=== PATIENT | male | born 1945 | race Caucasian/White ===

== ENCOUNTER 2023-08-18 10:12 | Outpatient (REF) | payer MEDICARE, SELFPAY ==
--- NOTE | ~2023-08-18 | XR_ITS ---
EXAMINATION: XR LUMBOSACRAL SPINE WITH OBLIQUES CLINICAL INFORMATION: Secondary scoliosis. Status post L2-L3, L3-L4, L4-L5 right hemilaminectomies as noted on prior MRI. COMPARISON: None. TECHNIQUE: 4 views of the lumbar spine inclusive of lateral flexion and extension views. FINDINGS: Levoscoliosis of the lumbar spine. Degenerative changes in the imaged lower thoracic spine. Degenerative changes in the bilateral sacroiliac joints. Possible transitional anatomy. Extensive facet arthritis in the axs-je-yicog lumbar spine. Atherosclerotic aortic calcifications. Moderate anterior wedge compression deformity of T12 vertebral body of indeterminate age and etiology. XR/XR lumbar spine 4V min IMPRESSION: 1. Moderate anterior wedge compression deformity of T12 vertebral body of indeterminate age and etiology. 2. Extensive facet arthritis in the mid to lower lumbar spine. 3. Levoscoliosis of the lumbar spine.
== END 2023-08-18 10:13 | disposition home or self-care (01) ==
LOC: HO.HOSX 10:12
PROVIDERS: PCP Internal Medicine; Visit Provider Neurological Surgery
DX: M51.36 Other intervertebral disc degeneration, lumbar region (principal); M41.56 Other secondary scoliosis, lumbar region
CPT/HCPCS: 72110; 99202

== ENCOUNTER 2023-08-18 10:12 | Outpatient (AMB) | payer MEDICARE, SELFPAY ==
--- NOTE | 2023-08-18 10:27 | HO.SPINEOV ---
Intake Intake Visit Reasons: low back pain Intake Note: Mr. Bonilla is here today c/o Low back pain that runs down legs. Model [employer]' Required: No Assessment & Plan Assessment & Plan (1) Scoliosis of lumbar region due to degenerative disease of spine in adult: Code(s): M41.56 - Other secondary scoliosis, lumbar region Plan: Dear colleague Thank you for referring Mike Bonilla to the office today with a chief complaint of progressive right-sided back pain. HPI: This 78-year-old active male has a history of multiple spinal surgeries including a right L2-3 microdiskectomy 2019 and a right SI joint fusion. He comes to my office complaining of progressive back pain that is mostly located along the right paralumbar spine and can radiate to the right leg and groin. Standing is the worst. He starts lean over towards the left side and developed severe pain. Walking is also limited due to pain. Sitting down improves the symptoms. He denies weakness or numbness. The following conservative treatment options were tried without success antiinflammatories, tylenol, physician guided home exercise plan, and cortisone shots PMH: Diabetes type 2, hypertension. Medications: Metformin, lisinopril Allergies: NKDA Social history: Physical Exam: Pleasant male. On inspection there is a lumbar degenerative scoliosis. No neurological deficits for motor sensation or reflexes. Radiological Studies: MRI done at [facility] on 07/14/2023 was compared to an MRI of the lumbar spine of 2019 and shows severe progressive lumbar degenerative disc disease L2-3, L3-4 and L4-5 with the development of a lumbar degenerative scoliosis due to asymmetrical collapse of the disc spaces . In addition there is moderate L2-3 spinal stenosis and multilevel moderate to severe foraminal stenosis. Impression/Plan: This 78-year-old male is suffering from progressive back pain with unilateral claudication into his right leg due to progressive lumbar degenerative scoliosis. A standing x-ray with flexion-extension confirms the lumbar degenerative scoliosis. I offered him a minimally invasive correction of the deformity through an L2-3 transKambin fusion and L3-L5 oblique lumbar interbody fusion. I described the procedure and expected postoperative course. He is scheduled for 10/19/2023. Thank you for allowing me to participate in your patients care. 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
== END 2023-08-18 11:41 | disposition home or self-care (01) ==
PROVIDERS: PCP Internal Medicine; Visit Provider Neurological Surgery
DX: M41.56 Other secondary scoliosis, lumbar region (principal)
CPT/HCPCS: 99205; 99215

== ENCOUNTER 2024-02-29 06:06 | Inpatient (IN) | payer MEDICARE, SELFPAY ==
--- NOTE | 2024-02-24 | ECG_ITS ---
Test Reason : PREOP Blood Pressure : / mmHG Vent. Rate : 061 BPM Atrial Rate : 061 BPM P-R Int : 192 ms QRS Dur : 094 ms QT Int : 404 ms P-R-T Axes : 090 -23 071 degrees QTc Int : 406 ms Sinus rhythm with marked sinus arrhythmia Nonspecific T wave abnormality Abnormal ECG No previous ECGs available Referred By: Carmella Flores Electronically Signed By:ACACIA CARDENAS
[2024-02-24 12:28] VITALS: BP 122/76; PULSE 68; RESP 20; O2SAT 97; BMI 34.7
--- NOTE | 2024-02-24 12:43 | P.CONAN_ITS ---
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 (Acute) Past Medical History Medical History Arthritis GERD (gastroesophageal reflux disease) Fall Diverticulosis DDD (degenerative disc disease), lumbar DDD (degenerative disc disease), cervical Back pain Diabetes HTN (hypertension) Family History Family history of problems with anesthesia: No Surgical History Surgical History History of esophagogastroduodenoscopy (EGD) H/O colonoscopy Hx of surgical fusion joint Hx of cataract surgery Hx of arthroscopy of shoulder Hx of decompressive lumbar laminectomy Hx of inguinal hernia repair Hx of total knee replacement Hx of arthroscopy of knee Hx of appendectomy History of Problems with Anesthesia: No Social History Social History Are you a primary day care center director to a significant other at home: No Do you presently have visiting nurse or other home services: No Patient Tobacco Use Status: Former Tobacco user Tobacco use type: Cigarette and Cigar Cigarette Packs Per Day: 1 Cigarettes Per Day: 20.0 Use of substances other than those prescribed or required for medical reasons: No Have you been hit, kicked, punched, or otherwise hurt by someone within the past year? If so, by whom?: No Spiritual Healthcare Practices: none Yarsanism Healthcare Practices: Religious Cultural Healthcare Practices: none Advance Directives Information Provided: Yes (as above noted) Advance Directives on File: No Recently lost weight without trying: No Eating poorly because of decreased appetite: No Nutrition Risks: Surgical patient >75years Poor oral hygiene: No (broken tooth bottom right/has dental crowns) Meds Allergies Allergy/AdvReac Type Severity Reaction Status Date / Time latex Allergy Intermediate Itching-certain Verified 02/29/24 06:20 tapes athletic therapy tape Allergy Severe Itching Uncoded 02/29/24 06:20 Home Medications ?Medication ?Instructions ?Recorded ?Confirmed ?Last Taken ?Type fluticasone propionate 50 1 spray intranasal BID PRN Nasal 10/04/23 02/24/24 Unknown History mcg/actuation nasal Congestion spray,suspension metformin 1,000 mg tablet 1,000 mg PO BEDTIME 10/04/23 02/24/24 Unknown History Exam Height,Weight and Vital Signs: Height 6 ft 4 in Weight 129.274 kg Last Vital Signs Pulse 68 02/24/24 12:28 Resp 20 02/24/24 12:28 BP 122/76 02/24/24 12:28 Pulse Ox 97 02/24/24 12:28 O2 Del Method Room Air 02/24/24 12:28 Pertinent Lab Results Pertinent Lab Results: Lab Results 02/24/24 02/24/24 Range/Units 13:17 13:25 WBC 7.4 (4.8-10.8) X10*3/uL RBC 5.38 (4.60-5.80) X10*6/uL Hgb 16.0 (14.0-18.0) g/dl Hct 47.8 (42.0-52.0) % MCV 88.8 (80.0-98.0) fL MCH 29.7 (27.0-33.0) pg MCHC 33.5 (31.0-36.0) g/dl RDW 13.7 (11.0-16.0) % Plt Count 239 (160-400) X10*3/uL MPV 10.0 (9.4-12.4) fL Absolute Nucleated RBC 0.000 (0.0-0.012) X10*3/uL Nucleated RBC % (auto) 0.0 (0.0-0.2) /100WBC Sodium 140 (135-145) mmol/L Potassium 4.3 (3.3-5.1) mmol/L Chloride 106 (96-108) mmol/L Carbon Dioxide 28 (22-29) mmol/L Anion Gap 10 L (12-20) BUN 19 H (9-16) mg/dL Creatinine 1.18 (0.5-1.4) mg/dL Estim Creat Clear Calc 76.9 Estimated GFR 60 Random Glucose 92 (60-115) mg/dL Calcium 10.3 H (8.4-10.2) mg/dL Blood Type O Positive Antibody Screen NEGATIVE Narrative Narrative: EKG 01/2024 Vent. Rate : 061 BPM Atrial Rate : 061 BPM P-R Int : 192 ms QRS Dur : 094 ms QT Int : 404 ms P-R-T Axes : 090 -23 071 degrees QTc Int : 406 ms Sinus rhythm with marked sinus arrhythmia Nonspecific T wave abnormality Abnormal ECG No previous ECGs available Airway Mallampati Class: II TM Dist: >3cm Neck ROM: Full Loose/Missing/Broken Teeth: Yes (broken filling left lower molar, crowns throughout) Heart: RRR Lungs: CTAB Assessment and Plan Assessment Anesthesia Assessment: Anesthesia Plan Discussed and PAT Visit Final Anesthetic Review Family History of Problems with Anesthesia: No History of Problems with Anesthesia: No Documented by User: Devorah Narayan MD 02/29/24 08:02 [facility] Past Medical History Medical History Arthritis GERD (gastroesophageal reflux disease) Fall Diverticulosis DDD (degenerative disc disease), lumbar DDD (degenerative disc disease), cervical Back pain Diabetes HTN (hypertension) Surgical History Surgical History History of esophagogastroduodenoscopy (EGD) H/O colonoscopy Hx of surgical fusion joint Hx of cataract surgery Hx of arthroscopy of shoulder Hx of decompressive lumbar laminectomy Hx of inguinal hernia repair Hx of total knee replacement Hx of arthroscopy of knee Hx of appendectomy Social History Social History Are you a primary day care center director to a significant other at home: No Do you presently have visiting nurse or other home services: No Patient Tobacco Use Status: Former Tobacco user Tobacco use type: Cigarette and Cigar Cigarette Packs Per Day: 1 Cigarettes Per Day: 20.0 Use of substances other than those prescribed or required for medical reasons: No Have you been hit, kicked, punched, or otherwise hurt by someone within the past year? If so, by whom?: No Spiritual Healthcare Practices: none Yarsanism Healthcare Practices: Religious Cultural Healthcare Practices: none Advance Directives Information Provided: Yes (as above noted) Advance Directives on File: No Recently lost weight without trying: No Eating poorly because of decreased appetite: No Nutrition Risks: Surgical patient >75years Poor oral hygiene: No (broken tooth bottom right/has dental crowns) Meds Allergies Allergy/AdvReac Type Severity Reaction Status Date / Time latex Allergy Intermediate Itching-certain Verified 02/29/24 06:20 tapes athletic therapy tape Allergy Severe Itching Uncoded 02/29/24 06:20 Home Medications ?Medication ?Instructions ?Recorded ?Confirmed ?Last Taken ?Type fluticasone propionate 50 1 spray intranasal BID PRN Nasal 10/04/23 02/24/24 Unknown History mcg/actuation nasal Congestion spray,suspension metformin 1,000 mg tablet 1,000 mg PO BEDTIME 10/04/23 02/24/24 Unknown History Assessment and Plan Assessment Anesthesia Assessment: Chart Reviewed Final Anesthetic Review NPO: Yes ASA Class: II Final Preanesthetic Review: Meds/Allgs Chart Reviewed, Consent Obtained/Reviewed and Anes Risks/Benef Reviewed Patient Risk: Low Procedure Risk: Intermediate Anesthetic Plan Anesthetic Plan: GA Disposition: Standard PACU
[2024-02-24 14:01] LABS: Hematocrit 47.8 % (42.0-52.0); Mean Corpuscular HGB Conc 33.5 g/dl (31.0-36.0); Mean Corpuscular Hemoglobin 29.7 pg (27.0-33.0); Mean Corpuscular Volume 88.8 fL (80.0-98.0); Platelet Count 239 X10*3/uL (160-400); Red Blood Count 5.38 X10*6/uL (4.60-5.80); Red Cell Distribution Width 13.7 % (11.0-16.0); White Blood Count 7.4 X10*3/uL (4.8-10.8)
[2024-02-24 14:49] LABS: Anion Gap 10 (12-20); Blood Urea Nitrogen 19 mg/dL (9-16); Calcium 10.3 mg/dL (8.4-10.2); Carbon Dioxide 28 mmol/L (22-29); Chloride 106 mmol/L (96-108); Creatinine Clr Calc Pharmacy 76.9; Estimated Glomerular Filt Rate 60; Glucose Random 92 mg/dL (60-115); Potassium 4.3 mmol/L (3.3-5.1); Sodium 140 mmol/L (135-145)
[2024-02-29] VITALS (15 sets, daily range): BP systolic 127–163; BP diastolic 75–89; PULSE 57–76; RESP 16–19; TEMP 36.1–36.7; O2SAT 93–98; BMI 35.2
[2024-02-29 06:58] LABS: Glucose, Whole Blood 130 mg/dL (60-115)
[2024-02-29] MEDS: Gabapentin 300 MG CAPSULE PO ×3 (06:59→20:32)
[2024-02-29] MEDS: Lactated Ringers 1,000 ML 100 ML IVCONT (06:59)
[2024-02-29] MEDS: methocarbamoL 750 MG TABLET PO (06:59)
--- NOTE | 2024-02-29 07:02 | P.HPSUR_ITS ---
Pre-Procedural Eval Section A - 24 Hr Update-Section A only Date of Service: 02/29/24 The patient is an INPATIENT: No Changes since office visit: No Cold of Flu in the past 2 weeks, No New Medical Problems, No Changes in Medication and No Patient answered all questions The patient has been examined within 24 hours of the surgical procedure. The History & Physical has been completed within 30 days and I have reviewed it.: No Section B - Complete if H&P > 30 days Chief Complaint: s/p L2-5 Lumbar fusion Allergies: Allergies Allergy/AdvReac Type Severity Reaction Status Date / Time latex Allergy Intermediate Itching-certain Verified 02/29/24 06:20 tapes athletic therapy tape Allergy Severe Itching Uncoded 02/29/24 06:20 Review of Systems Sugical H&P ROS: Negative: Constitution, Cardiovascular, Respiratory, Neurological, Psychiatric, Hem-Onc, Allergic/Immunologic, Gastrointestinal, Genitourinary, Musculoskeletal, Integumentary, Endocrine and Eyes/Ears/Nose/Throat Exam Surgical H&P Exam: Normal: HEENT, Normal: Heart, Normal: Lungs, Normal: Ex tremities, Normal: Abdomen, Normal: Skin and Normal: Neurological (awake, alert,oriented x 3 ) Plan Diagnosis/Plan: Unchanged L2-3 Transkambin interbody fusion, L3-4, L4-5 Oblique lumbar interbody fusion Time Spent With Patient Time: Total time managing care of this patient today __5__ minutes.
--- NOTE | 2024-02-29 07:13 | PHA.MEDREC ---
Pharmacy Consult ? Medication Reconciliation Pharmacy has completed the medication reconciliation. Reviewed med rec done by nursing
--- NOTE | 2024-02-29 12:20 | W.PM.OPN ---
Operative Note Operative Note Date of Service: 02/29/24 Narrative: Preoperative diagnosis: 1) lumbar degenerative disc disease L2-3, L3-4 and L4-5 With a degenerative scoliosis 2) back pain and lumbar radiculopathy Postprocedure diagnosis: 1) same as above Procedure: 1) L2-3, L3-4 and L4-5 oblique lateral lumbar interbody fusion with discectomy, preparation of the endplates and placement of a titanium bullet cage packed with allograft, anterior to the transverse process in modified prone position, with intraoperative biplanar fluoroscopy imaging and electrophysiological monitoring 2) L2 the [id number] minimally invasive pedicle screw placement and posterior lateral instrumentation and fusion with intraoperative biplanar fluoroscopic imaging and electrophysiological monitoring 3 njection of 10 cc of Exparel at the L3 transverse process for a muscular erector spinae block and additional Exparel in paravertebral tissue for postop management Consent Informed Consent was obtained for this operation. I have explained the nature, purpose and benefits of the operation. I have discussed the risks and benefit of the operation including possible complications or adverse events with patient/family. Alternative(s) were discussed with the patient with their relative benefits and risks as well as the consequences of not accepting the operation were included in obtaining consent. Surgeon: NIK TAYLOR MD, PHD Procedure Assisted By: viet Chappell Description of Procedure: This is a complex surgery on the lumbar spine and an tmd teacher assistant as needed for safety of the surgery for setup of instrumentation, retraction and closing. History: this 78-year-old male suffering from back pain, lumbar radiculopathy due to lumbar degenerative disc disease L2-L5 causing a degenerative scoliosis. T the original plan was to do an oblique lumbar interbody fusion L3-4 and L4-5 followed by a trans Kambin L2-L3 fusion followed by a posterior lateral instrumented fusion L2-L5. The procedure and complications were explained and the patient was consented. Procedure: The patient was brought to the operating room and endotracheally intubated. the patient was initially put in the lateral position with the left side up. Prep and drape was done followed by time-out. A 1 in incision was made in the left lower abdominal quadrant under fluoroscopic guidance. The L4-5 disc space was reached. Sequential dilators were placed followed by retractor. When I tried to do an annulotomy venous bleeding started. Initially small but then advancing to larger amounts. I performed hemostasis with the retractor and Surgiflo and Surgicel. I also called , vascular surgeon for standby. I think a small injury to a branch of the iliac vein occurred. Fortunately, hemostasis occurred and the retractor could be removed without any difficulties. However, it also man that I could not do the oblique lumbar interbody fusion through this approach. Therefore we decided to convert the procedure to a trans Kambin fusion L2-3, L3-4 and L4-5. The patient was positioned on the Danny spine table in a modified prone position for ease of access from the left side for the L2-3 and L3-4 levels and from the right side for the L4-5 level.. 2C arms were installed for fluoroscopy. Prepping and draping was done followed by timeout. The landmarks, including spinal processes, transverse processes, disc space, endplates and pedicles are identified and marked. The following steps are taken for each specified level: L2-3level: Cage size 11 mm high and 33 mm long titanium; L3-4 level: Cage size 10 mm high and 33 mm long titanium; L4-5 level: Cage size 10 mm high and 33 mm long titanium The patient was turned using the rotation of the surgical table so a near direct anterior lateral approach to the lumbar spine could be achieved. A small incision was then made superior to the mid iliac crest and then using biplanar fluoroscopy visualization, under electrophysiological monitoring and stimulation, we introduced an electrophysiological probe through the retroperitoneal space into the desired disc anterior to the transverse process and then passed it into the disc space after finding a silent window. The sleeve was retained and the probe was removed, then the K wire was passed sequentially into the disc space. A dilating tube was then passed along the same route. Following this, a working channel, a working channel was then passed sequentially into the disc space. The working channel was manually held in position while a series of disc cleaning tools were passed through the channel to remove the affected disc under clear and direct biplanar fluoroscopic visualization, decompress the nerve roots and equal corticated vertebral endplates at this segment. Arthrodesis of the intervertebral space via an anterior retroperitoneal exposure was achieved through Kambin's Vanderwagen and lateral extraforaminal space. Allograft was added into the anterior disc space. The working channel was then removed. A titanium interbody cage tightly packed with allograft was then inserted into the midportion of the intervertebral disc space over a K-wire under biplanar fluoroscopic visualization and intraoperative neuro monitoring. The inter pedicular and intradiscal space was significantly enlarged and disc height was restored to worked normal anatomy there for releasing pressure on the nerve roots visual largely the spinal canal and lateral recess as well as foramen were bilateral decompressed and all bones were confined to the borders of the disc space . the L2-3 and L3-4 levels were done from the left side. I was unable to obtain a silent window at the L4-5 level and therefore to come from the right side which was successful. In other words no abnormalities with neuro monitoring were seen. The following steps are then taken for each specified level: L3 levell: right L2 screw with a diameter of 6.5 x 50mm. the left L2 with a diameter of 7.5 x 50 mm. L3 level: Bilateral L3 screws with a diameter of 6.5 x 50 mm. L4 level: Bilateral L4 screws with a diameter of 6.5 x 50 mm. L5 level: Bilateral L5 screws with a diameter of 6.5 x 50 mm. a total of 8 pedicle screws were placed The posterolateral fusion is initiated after the patient is rotated to a true prone position. The entry point to the pedicle is identified in the AP and lateral views and then the skin incision is injected with local anesthetic. We entered the pedicle with the pediguard tap after which a K-wire was introduced into the vertebral body. Additionally, I used a small periosteal decorticator along the screws to refresh the surface of the bone and facet and I put some amount of allograft for additional stability for the posterolateral fusion. Over the K-wire we insert pedicle screws bilaterally. After the screws were placed, we put the adan in place and under fluoroscopic imaging, we locked the adan in place and removed the screw tops and then each incision has been closed with 0 Vicryl for the fascia and a 3-0 Vicryl for the subdermal layer. Steri-Strips were used to approximate the incisions. An OpSite with Tegaderm was used to cover the incision. Final x-rays and AP and lateral projection showed good position of the interbody device and instrumentation. All sponge and needle counts were correct. The patient was extubated and transported in a stable condition to the recovery room. 2-0 Vicryl This procedure was done with the aid of a physician tmd teacher assistant as a qualified resident was not available. Anesthesia: General Estimated Blood Loss (ml): 100 mL Specimen: None Duration of Surgery: 4 hours Postoperative Plan: Admit to inpatient
[2024-02-29] MEDS: HYDROmorphone HCl 0.5 MG/0.5 ML SYRINGE 0.25 MG IVPUSH ×2 (13:00→13:05)
[2024-02-29 13:45] LABS: Glucose, Whole Blood 168 mg/dL (60-115)
[2024-02-29] MEDS: Acetaminophen 1,000 MG/100 ML PIGGYBACK 400 MG IV ×2 (13:53→20:31)
[2024-02-29] MEDS: oxyCODONE HCl Immed Release 5 MG TABLET 10 MG PO (13:53)
[2024-02-29] MEDS: 0.9 % Sodium Chloride 1,000 ML 75 ML IVCONT (13:56)
[2024-02-29] MEDS: hydrOXYzine HCL 25 MG TABLET PO ×2 (14:28→20:32)
[2024-02-29] MEDS: ceFAZolin Sodium 3 GM in 0.9 % Sodium Chloride 100 ML IV ×2 (15:23→20:40)
--- NOTE | 2024-02-29 16:00 | PC.NURSE ---
Pt unable to void at 1600, bladder scanned for 359ml, cathed for 400ML, pt tolerated well.
[2024-02-29 16:05] LABS: Glucose, Whole Blood 177 mg/dL (60-115)
[2024-02-29] MEDS: Insulin Lispro 100 UNIT/ML 3 ML VIAL SUBCUT ×2 (16:52→20:30)
[2024-02-29] MEDS: Ketorolac Tromethamine 15 MG/ML VIAL IVPUSH (18:08)
[2024-02-29 20:02] LABS: Glucose, Whole Blood 164 mg/dL (60-115)
[2024-02-29] MEDS: metFORMIN HCl 1,000 MG TABLET 1000 MG PO (20:32)
[2024-02-29] MEDS: oxyCODONE HCl Immed Release 5 MG TABLET PO (20:32)
[2024-02-29] MEDS: Docusate Sodium 100 MG CAPSULE PO (20:32)
[2024-03-01] MEDS: oxyCODONE HCl Immed Release 5 MG TABLET PO (02:10)
[2024-03-01] MEDS: Acetaminophen 1,000 MG/100 ML PIGGYBACK 400 MG IV ×4 (02:10→21:42)
[2024-03-01] MEDS: Ketorolac Tromethamine 15 MG/ML VIAL IVPUSH ×4 (02:10→18:12)
[2024-03-01] MEDS: ceFAZolin Sodium 3 GM in 0.9 % Sodium Chloride 100 ML IV (02:11)
[2024-03-01] MEDS: 0.9 % Sodium Chloride 1,000 ML 75 ML IVCONT (02:13)
[2024-03-01 02:17] VITALS: BP 143/77; PULSE 87; RESP 17; TEMP 36.9; O2SAT 94
--- NOTE | 2024-03-01 03:31 | PC.NURSE ---
Pt has a history of postsurgical voiding issues. Was bladder scanned for 903ml and straight catha\eterization for 900
--- NOTE | 2024-03-01 06:52 | HO.NEUROPN_ITS ---
Neurosurgery Operative Note Date of Service: 03/01/24 Narrative: POD: 1 Procedure: L2-5 transKambin lumbar fusion Beau is a pleasant 78 year old male who underwent L2-5 lumbar fusion yesterday. He was seen sitting on edge of bed attempting to void with [facility]. Patient reports he is has not been OOB except with nurse assist. Nursing reports that overnight sign out stated he had quite a bit of difficulty standing/ambulating and was ?shaky on his feet. He feels his low back pain has improved and denies any right sided radiculopathy. He still reports good pain relief with prescribed pain regimen. Notably he has been retaining urine since surgery and had a bladder scan for 900 cc last night, needed to be straight catheterized x1. He has been attempting to void since then and has been unable to do so. Afebrile, vital signs stable. Full strength & sensation in his bilateral LE's. Back dressings have some staining without signs of hematoma. No active sanguineous drainage. Area is dry. Plan: Beau is a 78 year old male POD:1 s/p L2-5 lumbar fusion. He will need to mobilize with PT today, and continuing attempting to void independently. He will tentatively remain on 3[facility] for continued recovery, pain management, and evaluation. If he is feeling better later today, is able to void, and does well with PT we may consider DC home, but he will likely stay another night for the aforementioned reasons. When he is discharged we will be sending him home on a multimodal pain regimen of oxycodone, gabapentin, hydroxyzine, and methocarbamol. Case & patient care discussed with the attending neurosurgeon Dr. Ruiz. Don Ruiz MD,PhD [facility]
[2024-03-01] MEDS: oxyCODONE HCl Immed Release 5 MG TABLET 10 MG PO ×3 (06:59→14:48)
[2024-03-01] MEDS: hydrOXYzine HCL 25 MG TABLET PO ×3 (07:00→21:46)
[2024-03-01] MEDS: Docusate Sodium 100 MG CAPSULE PO ×2 (07:01→21:46)
[2024-03-01] MEDS: Gabapentin 300 MG CAPSULE PO ×3 (07:01→21:46)
[2024-03-01 07:17] VITALS: BP 139/67; PULSE 70; RESP 18; TEMP 37.1; O2SAT 93
[2024-03-01 07:44] LABS: Glucose, Whole Blood 120 mg/dL (60-115)
[2024-03-01 08:06] VITALS: BP 139/67; PULSE 70; O2SAT 93
--- NOTE | 2024-03-01 09:08 | HO.POSTANES ---
Post Anesthesia Evaluation Post Anesthesia Evaluation Date of Service: 02/29/24 Vital Signs: Vital Signs Temp Pulse Resp BP Pulse Ox O2 Del Method 03/01/24 08:06 70 139/67 93 03/01/24 07:17 98.8 F 70 18 139/67 93 Room Air 03/01/24 02:17 98.5 F 87 17 143/77 H 94 Room Air Anesthesia: General Endotracheal-GETA Mental Status: Awake Pain Control: Satisfactory Nausea/Vomiting: None Hydration: Adequate Anesthesia-Related Issues: No Anes. Related Issues
--- NOTE | 2024-03-01 09:20 | MHC.CM.PN ---
IMM delivered. Patient lives in a home w/ . Functionally independent. Denies use of DME or services. PCP Sara Zapata MD Reports he has an HCP listing his [facility] as [facility]. to bring in copy. DP: Goal is home self care. Do not anticipate the need for services. to transport. CM will continue to follow.
--- NOTE | 2024-03-01 09:44 | PC.NURSE ---
patient bladder scanned for 680ml, did take a walk because he thought that would help him urinate but no luck so patient straight cathed now for 700ml
[2024-03-01 11:22] LABS: Glucose, Whole Blood 136 mg/dL (60-115)
[2024-03-01 14:50] VITALS: BP 146/74; PULSE 71; RESP 18; TEMP 37.2; O2SAT 93
[2024-03-01 16:05] LABS: Glucose, Whole Blood 146 mg/dL (60-115)
--- NOTE | 2024-03-01 16:20 | PM.DS ---
DS: Providers Provider Date of Service: 03/02/24 Date of admission: 02/29/24 06:06 Primary care physician: Unknown Physician DS: Summary Time Attestation Discharge Coordination Time (in mins): 15 Quality: Safe Use of Opioids Does Pt have an Active Cancer Diagnosis on the Problem List?: No Quality: Stroke Does the patient have a stroke diagnosis?: No Physical Exam Vital Signs: Vital Signs: Last Vital Signs Temp 98.9 F 03/01/24 14:50 Pulse 71 03/01/24 14:50 Resp 18 03/01/24 14:50 BP 146/74 H 03/01/24 14:50 Pulse Ox 93 03/01/24 14:50 O2 Del Method Room Air 03/01/24 14:50 O2 Flow Rate 2 02/29/24 14:21 BMI result Body Mass Index 35.2 DS: Data Data Completed and Pending Labs on day of discharge: Laboratory Results - last 24 hr 02/29/24 03/01/24 03/01/24 19:56 07:15 11:06 POC Glucose 164 H 120 H 136 H 03/01/24 15:57 POC Glucose 146 H Discharge Plan Discharge Anticipated Discharge Date/Time: 03/01/24 16:21 Patient Disposition: Home, Self-Care Discharge Diagnosis: s/p L2-5 Transkambin Lumbar Fusion Referrals: Physician,Unknown J [Primary Care Provider] - 1 Week Discharge Medications: New oxycodone 5 mg tablet 5 mg PO TID PRN (Reason: severe pain (scale score 7-10)) Qty: 30 0RF Rx Instructions: Partial Fill upon patient request. gabapentin 100 mg capsule 100 mg PO TID Qty: 30 0RF hydroxyzine HCl 25 mg tablet 25 mg PO TID Qty: 30 0RF methocarbamol 500 mg tablet 1,000 mg PO TID Qty: 30 0RF Continued metformin 1,000 mg tablet 1,000 mg PO BEDTIME fluticasone propionate 50 mcg/actuation spray,suspension 1 spray intranasal BID PRN (Reason: Nasal Congestion) Discharge Orders: Discharge Order (Routine); Ordered 03/02/24 Ordered By: Don Waite Diet: Advance to usual diet Activity on Discharge: As tolerated Stand Alone Forms: Patient Portal Discharge page Print Language: Syriac Care Plan Goals: Return to normal activity as tolerated Health Concerns: None Plan of Treatment: Follow-up in clinic in 2-3 weeks Assessment: POD: 2 Procedure: L2-5 Transkambin lumbar fusion Beau was seen sitting upright in his bed this morning on . He had issues with voiding initially post-operatively but was able to void on POD:1 in the later afternoon. He has mobilized with PT. His family was seen who expressed concerns regarding his unsteady ambulation, therefore we decided to keep him another day as previously mentioned in his note from POD:1. Doing very well POD:2 (today). He is reporting little to no back pain and states his radiculopathy has resolved. He is tolerating current diet well, and feels his pain continues to be well managed with current regimen. Afebrile, vital signs stable. Full strength 5/5 LE's. Back dressings have some staining without signs of hematoma. No active sanguineous drainage. Area is dry. Plan: Beau is a pleasant 78 y/o male on POD:2 s/p L2-5 transkambin. He is voiding well now, tolerating his current diet, and his pain is well controlled. He has continued to make progress with PT. He meets medical criteria to be discharged home. He was seen at bedside by Dr. Ruiz this morning. Don Ruiz MD,PhD [facility] [employer] [facility]
[2024-03-01 19:00] VITALS: BP 137/65; PULSE 78; RESP 18; TEMP 37.2; O2SAT 95
[2024-03-01 20:19] LABS: Glucose, Whole Blood 182 mg/dL (60-115)
[2024-03-01] MEDS: Insulin Lispro 100 UNIT/ML 3 ML VIAL SUBCUT (21:46)
[2024-03-01] MEDS: metFORMIN HCl 1,000 MG TABLET 1000 MG PO (21:46)
[2024-03-02] MEDS: Ketorolac Tromethamine 15 MG/ML VIAL IVPUSH ×2 (00:57→05:45)
[2024-03-02] MEDS: Acetaminophen 1,000 MG/100 ML PIGGYBACK 400 MG IV (00:58)
[2024-03-02 03:42] VITALS: BP 150/68; PULSE 81; RESP 14; TEMP 37.3; O2SAT 92
[2024-03-02 07:19] VITALS: BP 150/68; PULSE 81; O2SAT 92
[2024-03-02 07:38] LABS: Glucose, Whole Blood 135 mg/dL (60-115)
[2024-03-02 07:40] VITALS: BP 133/86; PULSE 94; RESP 16; TEMP 36.9; O2SAT 94
--- NOTE | 2024-03-02 09:03 | HO.NEURO.PN ---
Neurosurgery Operative Note Date of Service: 03/02/24 Narrative: POD: 2 Procedure: L2-5 Transkambin lumbar fusion Beau was seen sitting upright in his bed this morning on . He had issues with voiding initially post-operatively but was able to void on POD:1 in the later afternoon. He has mobilized with PT. His family was seen who expressed concerns regarding his unsteady ambulation, therefore we decided to keep him another day as previously mentioned in his note from POD:1. Doing very well POD:2 (today). He is reporting little to no back pain and states his radiculopathy has resolved. He is tolerating current diet well, and feels his pain continues to be well managed with current regimen. Afebrile, vital signs stable. Full strength 5/5 LE's. Back dressings have some staining without signs of hematoma. No active sanguineous drainage. Area is dry. Plan: Beau is a pleasant 78 y/o male on POD:2 s/p L2-5 transkambin. He is voiding well now, tolerating his current diet, and his pain is well controlled. He has continued to make progress with PT. He meets medical criteria to be discharged home. He was seen at bedside by Dr. Ruiz this morning. Don Ruiz MD,PhD [facility]
[2024-03-02] MEDS: Docusate Sodium 100 MG CAPSULE PO (09:28)
[2024-03-02] MEDS: hydrOXYzine HCL 25 MG TABLET PO (09:28)
[2024-03-02] MEDS: Gabapentin 300 MG CAPSULE PO (09:29)
--- NOTE | 2024-03-02 09:30 | MHC.CM.PN ---
IMM 03/01/24 Patient is discharged to home self care. He has arranged for transportation home.
[2024-03-02] MEDS: oxyCODONE HCl Immed Release 5 MG TABLET PO (09:33)
== END 2024-03-02 10:15 | disposition home or self-care (01) | DRG 458 ==
LOC: HO.SSSA 06:22 → HO.S3 12:45
PROVIDERS: Neurological Surgery; Nurse Practitioner; Admitting Provider Physician Assistant; PCP Internal Medicine; Visit Provider Physician Assistant
PROC: 0SG10A0 Fusion of 2 or more Lumbar Vertebral Joints with Interbody Fusion Device, Anterior Approach, Anterior Column, Open Approach (ICD-10-PCS; principal; 2024-02-29 07:30)
PROC: 0SG10A0 Fusion of 2 or more Lumbar Vertebral Joints with Interbody Fusion Device, Anterior Approach, Anterior Column, Open Approach (ICD-10-PCS; 2024-02-29 07:30)
DX: M51.16 Intervertebral disc disorders with radiculopathy, lumbar region (principal); M41.56 Other secondary scoliosis, lumbar region; K21.9 Gastro-esophageal reflux disease without esophagitis; Z87.891 Personal history of nicotine dependence; Z79.84 Long term (current) use of oral hypoglycemic drugs; Z79.899 Other long term (current) drug therapy
CPT/HCPCS: 36415; 80048; 82947; 85027; 86850; 86900; 86901; 93005; 97116; 97162; 97530; C1713; C1889; C9250; C9290; J0131; J0665; J0690; J1170; J1171; J1885; J2405; J2704; J3010; L8699

== ENCOUNTER → 2024-02-29 06:06 | Outpatient (BNV) | payer MEDICARE, SELFPAY | PROVIDERS: Admitting Provider Physician Assistant; Visit Provider Neurological Surgery | DX: Z48.89 Encounter for other specified surgical aftercare (principal) | CPT/HCPCS: 20930; 22558; 22585; 22612; 22614; 22842; 22853; 63056; 63057; 99024; 99499 ==

== ENCOUNTER → 2024-03-16 14:48 | Outpatient (AMB) | payer MEDICARE, SELFPAY ==
--- NOTE | 2024-03-16 14:57 | A.SPINEOV_ITS ---
Intake Visit Reasons: incision check Intake Note: Mr. Bonilla is here today for an incision check. Pipelines Superintendent Required: No Allergies latex Allergy (Intermediate, Verified 02/29/24 06:20) Itching-certain tapes athletic therapy tape Allergy (Severe, Uncoded 02/29/24 06:20) Itching Assessment & Plan Assessment & Plan (1) Scoliosis of lumbar region due to degenerative disease of spine in adult: Code(s): M41.56 - Other secondary scoliosis, lumbar region Category: Medical Plan Beau is a pleasant 78-year-old male who comes in today for a postoperative wound check. He is roughly 16 days postop. He called our office today to report that he believes he has an issue with his lateral incision site. His has been cleaning the incision site daily & putting mupirocin cream on it. He reports that the area is not painful to touch, but has had some light drainage. In addition to this he reports that he has had pains in his left lower extremity. He reports that he has not refilled the prescribed medications that were given to a postoperatively, aside from the oxycodone. On examination Beau has what I would call 4/5 strength with right-sided dorsiflexion and knee extension. The rest of his lower extremity strength is 5/5. He is able to stand on his heels and his toes, but notably struggles more on the right side to do so, and has decreased dorsiflexion on the right with doing so. His anterior/lateral incision appears to have a small area on the superior end that is struggling to close when compared to the rest of the area. No purulence was expressed from the area during this exam. I would like to follow Beau closely. I sent a picture of the incision site to Dr. Ruiz. I will send in a course of Bactrim for the patient as prophylaxis although I do not suspect this area to be infected given it is not painful, has little to no erythema, and no palpable fluctuance. Don Ruiz MD,PhD [facility] Medications: New sulfamethoxazole-trimethoprim 800-160 mg (Bactrim DS) 1 tab PO BID 10 tabs 0RF surgical prophylaxis Changed From gabapentin 100 mg PO TID 30 caps 0RF nerve pain To gabapentin 200 mg (2 x 100 mg) PO TID 60 caps 0RF nerve pain Refilled methocarbamol 1,000 mg (2 x 500 mg) PO TID 30 tabs 0RF muscle spasms Coding Level of Care Code Global (66734) Diagnoses Scoliosis of lumbar region due to degenerative disease of spine in adult M41.56
== END ==
PROVIDERS: PCP Internal Medicine; Visit Provider Physician Assistant
DX: M41.56 Other secondary scoliosis, lumbar region (principal)
CPT/HCPCS: 99024

== ENCOUNTER → 2024-03-16 14:48 | Outpatient (BNVA) | payer MEDICARE, SELFPAY | PROVIDERS: PCP Internal Medicine; Visit Provider Physician Assistant | DX: Z09 Encounter for follow-up examination after completed treatment for conditions other than malignant neoplasm (principal); M41.56 Other secondary scoliosis, lumbar region; Z98.890 Other specified postprocedural states | CPT/HCPCS: 99212 ==

== ENCOUNTER 2024-03-22 13:34 | Outpatient (REF) | payer MEDICARE, SELFPAY ==
--- NOTE | ~2024-03-22 | XR_ITS ---
EXAMINATION: XR LUMBAR SPINE 2 VIEWS CLINICAL INFORMATION: Arthrodesis status Z98.1. COMPARISON: August 18, 2023. TECHNIQUE: AP and lateral views of the lumbosacral spine. FINDINGS: Transitional vertebral anatomy with presumed lumbarization of S1. Bilateral transpedicular screws, rods, disc spacing devices are present at L3-S1. No evidence of hardware fracture or loosening. Mild compression deformity of T12 appears unchanged compared with August 18, 2023. Mild multilevel degenerative changes of the spine. No evidence of spondylolysis or spondylolisthesis. Mild lumbar levocurvature. No lytic or sclerotic bony lesion identified. Paraspinal soft tissues appear unremarkable. Mild aortic calcification. XR/XR lumbar spine 2-3V IMPRESSION: No acute finding. Electronically signed by: Dennis Main MD 05/10/2024 12:12 PM YVETTE HODGE
== END 2024-03-22 13:35 | disposition home or self-care (01) ==
LOC: HO.HOSX 13:34
PROVIDERS: PCP Internal Medicine; Visit Provider Physician Assistant
DX: Z47.89 Encounter for other orthopedic aftercare (principal); Z98.1 Arthrodesis status
CPT/HCPCS: 72100; 99212

== ENCOUNTER 2024-03-22 13:34 | Outpatient (AMB) | payer MEDICARE, SELFPAY ==
--- NOTE | 2024-03-22 13:39 | A.SPINEOV_ITS ---
Intake Visit Reasons: 1st post op Intake Note: Mr. Bonilla is here today for his 1st post-op. Service Desk Manager Required: No Allergies latex Allergy (Intermediate, Verified 02/29/24 06:20) Itching-certain tapes athletic therapy tape Allergy (Severe, Uncoded 02/29/24 06:20) Itching Assessment & Plan Assessment & Plan (1) S/P spinal fusion: Code(s): Z98.1 - Arthrodesis status Category: Surgical Plan Procedure: L2-3, L3-4 and L4-5 RIVER Yanez comes in today for a subsequent follow-up visit after having a 3 level lumbar fusion completed by our service. To recap his anterior lateral incision site on the left had slightly opened up near the superior edge of the incision. He reports that it has remained about the same since use previously seen. In addition to this he reports growing concerns regarding his inability to fully dorsiflex his right foot. He is able to lift his foot up off the ground but he finds it more difficult to do so when he is sitting down in a chair or flexing forwards. In addition to this he continues to have some shooting pains into his right posterior buttocks and near his right knee. The patient was evaluated alongside Dr. Ruiz today who agrees that this is likely a result of the surgical approach, but should not remain a permanent problem. Patient is able to ambulate with the assistance of a walker. Posterior incision sites are closed, well healing, with no signs of drainage. Anterolateral incision site remains slightly opened as described above with no swelling or erythema. He has partial loss of EHL / dorsiflexion on the right, and maintains the rest of his lower extremity strength. We discussed how this partial foot drop is likely related to the approach of the transkambin surgery. The patient understands and we answered all of his questions to the best of our ability. We think this may be resolved his something such as physical therapy to improve his strength and range of motion. In the interim between now and starting physical therapy I will write the patient a paper prescription for an ankle-foot orthotic to help with the loss of dorsiflexion/EHL. Dr. Ruiz would also like to obtain a CT scan of the lumbar spine to ensure that all the instrumentation is in place and not impinging upon the right-sided L4/5 nerve roots. I also refilled the patient's methocarbamol for him. We will follow-up with the patient in 2 weeks and continue to follow him closely. Don Ruiz MD,PhD [facility] Orders: Orders XR lumbar spine 4V min Today Z98.1 - Arthrodesis status PT Evaluation and Treatment Today Z98.1 - Arthrodesis status CT lumbar spine wo IV con Today Z98.1 - Arthrodesis status Medications: New methocarbamol 750 mg PO Q8H 30 tabs 0RF Coding Level of Care Code Global (17206) Diagnoses S/P spinal fusion Z98.1
== END 2024-03-22 14:39 | disposition home or self-care (01) ==
PROVIDERS: PCP Internal Medicine; Visit Provider Physician Assistant
DX: Z98.1 Arthrodesis status (principal)
CPT/HCPCS: 99024

== ENCOUNTER 2024-04-05 13:12 | Outpatient (AMB) | payer MEDICARE, SELFPAY ==
--- NOTE | 2024-04-05 13:33 | HO.SPINEOV ---
Intake Visit Reasons: CT scan follow up Intake Note: Mr. Bonilla is here to F/u on the results to his CT scan. Assurance Associate Required: No Allergies latex Allergy (Intermediate, Verified 04/05/24 13:34) Itching-certain tapes athletic therapy tape Allergy (Severe, Uncoded 02/29/24 06:20) Itching Assessment & Plan Assessment & Plan (1) S/P spinal fusion: Code(s): Z98.1 - Arthrodesis status Category: Surgical Plan Beau comes in today for a subsequent follow-up appointment. We have been following him closely for a slightly open incision site at his OLIF lateral incision. Thankfully after the saline dressings it appears the incision site has healed over completely. He has already reviewed his CT scan with this typewriter ribbon winder over the phone. We did reviewed again today in clinic. I also looked at his x-ray imaging with him and sent him some pictures to his phone per his request. He reports he will be starting physical therapy soon to help with strength training of his lower extremities. He denies any significant lower extremity pain, but does state he still has some distal right lower extremity numbness which he hopes he can work out with time as he continues to exercise. I encouraged Beau to follow through with physical therapy and to reach back out to our office if he needs a subsequent evaluation. Don Ruiz MD,PhD [facility] Coding Level of Care Code Global (87553) Diagnoses S/P spinal fusion Z98.1
== END 2024-04-05 13:58 | disposition home or self-care (01) ==
LOC: HO.HNS 13:13
PROVIDERS: PCP Internal Medicine; Visit Provider Physician Assistant
DX: Z98.1 Arthrodesis status (principal)
CPT/HCPCS: 99024

== ENCOUNTER → 2024-04-05 13:12 | Outpatient (BNVA) | payer MEDICARE, SELFPAY | PROVIDERS: PCP Internal Medicine; Visit Provider Physician Assistant | DX: T81.89XD Other complications of procedures, not elsewhere classified, subsequent encounter (principal); X58.XXXD Exposure to other specified factors, subsequent encounter; Z98.1 Arthrodesis status | CPT/HCPCS: 99212 ==

== ENCOUNTER 2024-05-05 11:00 | Outpatient (RCR) | payer MEDICARE, SELFPAY ==
--- NOTE | 2024-04-03 12:51 | MHC.PT.EP ---
[facility] [place] Office [place] Office [place] Office [address] Beverly Palomino [address] [phone] F: [phone] F: [phone] F: [phone] F: [phone] Physical Therapy Plan of Care Date of Evaluation: 04/03/24 Date of Surgery: 02/29/24 Diagnosis: PT eval and treat, Z98.1 Arthrodesis status s/p spinal fusion, date of script 03/23/24 by SAMANTHA De La Garza Assessment: Pt is a RHD 78 y/o male with PMH significant for DMII, history of R RTC tear (not repairable per pt) history of bilateral TKA with fatty cyst and history of R knee instability pre back surgery reported from patient caused fall in 09/21, and appendectomy, histrory of two other back surgeries by Dr Ruiz prior to, s/p lumbar fusion Plan Procedure: L2-3, L3-4 and L4-5 OLLIF DOS 02/29/[address] Ruiz. Pt had post op on 03/22/24, was booked for CT, xray, and PT eval. At time of post op pt presented concern for new onset of R DF weakness and foot drop, lateral hip pain, and posterior buttocks sx, expressing severe pain impacting his ability to sleep at night. Today he states was his first outing aside from MD appts and first time driving since surgery. Pt was accompanied by his Urvashi. Pt is booked for CT scan tomorrow and has a follow up with [facility] office on Wednesday04/05/24. Pt exhibits loss of strength R ankle DF and R EHL. Pt exhibits sx along R posterior hip discomfort/pain (+) neutral tension with extension of his R LE. He was given a prescription for AFO but has not yet made appt expressing his hesitation and his goal of coming to PT first. He was apprehensive and was encouraged/educated why therapist would recommend calling to make as previously expressed by surgeon office. Pt educated that this AFO would likely reduce other gait deviations. Pt inquired about swimming, was advised clearance will need to come from his surgeon but likely not at this time due to left lateral hip incision area remains unhealed and covered with dressing. Pt/pt spouse admit to changing dressing twice daily with saline rinses. Pt was encouraged to book PT twice a week for four weeks to address impairments, impairment HEP, and restore mobility to resume baseline level of function. Frequency and Duration: The patient will be seen 2x/week x 4 weeks Short Term Goals: 1. Improve R ankle DF to 50% of the ROM compared with L LE. (IR approx 25% ROM DF compared to L). 2. Improve R EHL strength to 4/5 of of the strength compared with L LE. (IR: 3+/5). 3. Pt will demonstrate strength R hip abd to 3+/5, (IR: 3/5 with pain reported). 4. Pt will express 25% reduction in posterior lateral hip pain. 5. Demonstrate log roll technique for bed mobility. 6. Demonstrate joint protection in regard to repair. Hot Frame Tender Goals: 1. Pt will demonstrate R ankle DF AROM in sitting near symmetry on the left side. (IR: 25% on on the DF). 2. Pt will demonstrate strength R hip abd to 4+/5 compared with the L LE. 3. Pt will resume community ambulation MOD I with no AD. 4. Pt will demonstrate sit<>stand and stand<>sit with good eccentric control. 5. Resume ambulation MOD I with least restrictive AD/AFO. Treatment Plan: Modalities to reduce pain, spasms and effusion. Manual therapy to restore motion and function. Therapeutic exercise to improve strength and flexibility. Neuromuscular re-education for posture and balance. Therapeutic activities to return to functional activities of daily living. Electronically signed by: Bell Ku, PT, DPT Please sign and return to therapist. Thank you for your referral.
== END 2024-06-23 08:48 | disposition home or self-care (01) ==
LOC: HO.PTWFD 11:00
PROVIDERS: PCP Internal Medicine; Visit Provider Physician Assistant
DX: Z98.1 Arthrodesis status (principal)
CPT/HCPCS: 97110; 97140; 97162

== ENCOUNTER 2024-07-31 10:42 | Outpatient (REF) | payer MEDICARE, SELFPAY ==
--- NOTE | ~2024-07-31 | XR_ITS ---
EXAMINATION: X-ray lumbar spine 4 views. CLINICAL INFORMATION: Arthrodesis, status. TECHNIQUE: 4 views of the lumbar spine including flexion and extension and standing position. COMPARISON: March 22, 2024. FINDINGS: Transpedicle screws joint with metallic adan through the L3, L4, L5 and S1 transitional vertebra/sacralization. Status post intervertebral body disc spacer placement at L3-4, L4-5 and L5-S1. There is no malalignment in neutral, or during flexion or extension position. Multilevel lower thoracic and upper lumbar spondylosis. Old superior endplate compression deformity at T12. Vascular calcification, aorta. XR/XR lumbar spine 4V min IMPRESSION: Status post arthrodesis without acute fracture or listhesis or instability. Electronically signed by: Campbell Sterling MD 08/01/2024 09:18 AM YVETTE HODGE
--- OUTSIDE RECORDS SUMMARY | 2024-07-31 13:16 | XMS_ITS | Clinical Summary ---
Author Organization [facility] Address [address] [place] [id number] Care Team Providers Care Care Team Assistant Name Role Phone Sara Zapata MD Primary [...] age to complete this topic Care Teams Care Team Assistant Relationship Specialty Start Date End Date Sara Zapata MD PCP - General Internal Medicine 01/24/20
--- OUTSIDE RECORDS SUMMARY | 2024-07-31 13:16 | XMS_ITS | Clinical Summary ---
Author Organization [facility] Address [address] [place] [address] Care Team Providers Care Pipeline Superintendent Division Name Role Phone Hannah Munoz MD Primary Care Provider [phone] Surgical History Surgery Date Site/Laterality Comments BACK [...] age to complete this topic Care Teams Pipeline Superintendent Division Relationship Specialty Start Date End Date Hannah Munoz MD [address] [place] [phone] PCP - General 07/19/20
--- OUTSIDE RECORDS SUMMARY | 2024-07-31 13:17 | XMS_ITS | Clinical Summary ---
Author Organization [facility] Address [address] [place] [address] Care Team Providers Care Finance Manager Name Role Phone Sara Zapata MD Primary [...] Follow-Up 05/31/2024 Health Care Proxy Review 05/31/2024 [facility] of Health Annual Screening 05/31/2024 DTaP,Tdap,and Td Vaccines (2 - Td or Tdap) 10/12/2032 10/12/2022 Zoster Vaccines Completed 05/09/2021, 02/12/2021 Hepatitis B Vaccines Aged Out No long er eligible based on patient's age to complete this topic Insurance MEDICARE [facility] Care Teams Finance Manager Relationship Specialty Start Date End Date Sara Zapata MD [address] [place] [phone] PCP - General Internal Medicine 10/12/22
--- OUTSIDE RECORDS SUMMARY | 2024-07-31 13:17 | XMS_ITS | Referral Summary ---
Author Organization [facility] Address [address] [place] [address] Care Team Providers Care Sheet Metal Duct Installer Helper Name Role Phone Sara Zapata MD Primary Care Provider [phone] Allergies Active Allergy Reactions Criticality Noted Date [...] of Treatment Not on file Insurance MEDICARE [facility] Care Teams Sheet Metal Duct Installer Helper Relationship Specialty Start Date End Date Sara Zapata MD [address] [place] [phone] PCP - General Internal Medicine 10/12/22
== END 2024-07-31 10:43 | disposition home or self-care (01) ==
LOC: HO.HOSX 10:42
PROVIDERS: PCP Internal Medicine; Visit Provider Physician Assistant
DX: Z98.1 Arthrodesis status (principal)
CPT/HCPCS: 72110; 99212

== ENCOUNTER 2024-07-31 10:42 | Outpatient (AMB) | payer MEDICARE, SELFPAY ==
--- NOTE | 2024-07-31 10:45 | A.SPINEOV_ITS ---
Intake Visit Reasons: possible bulging screw left side Intake Note: Mr. Bonilla is here today to Discuss bulging screw. Pipe Organ Mechanic Required: No Allergies latex Allergy (Intermediate, Verified 07/31/24 10:56) Itching-certain tapes athletic therapy tape Allergy (Severe, Uncoded 02/29/24 06:20) Itching Assessment & Plan Assessment & Plan (1) S/P spinal fusion: Code(s): Z98.1 - Arthrodesis status Category: Surgical Plan Mr Bonilla is 5 months out from his L2-5 scoliosis correction using a trans Kambin approach. He continues to have the footdrop on the right side but the strength is improving. On my exam today it is about a 4-5. The reason he comes in today is because he has been having pain on the left side of his back and the paraspinal region. He has been noticing on the middle of the left side there is a lump and it a appears to be mobile when he puts his hand on it. On my exam, I can palpate something under the skin which does appear to be moving. I sent him for x-rays and I do not see anything changing in the positioning of the hardware. Incidentally noted however, the right L2 locking cap is not connected to the [place] head. I do not see any shifting of the adan. I am not sure what to make of the spot that he is feeling but it is giving him discomfort daily especially when standing. It also is uncomfortable when sitting in a chair pushes against it. I would like to get a noncontrast CT just to make sure we are not missing some other kind of issue with the hardware. I can call him with the results. Total amount of time spent in this visit was 20 minutes in discussion of symptoms, lumbar x-ray imaging results and subsequent plan of care Bc Ruiz MD,PhD [facility] Orders: Orders XR lumbar spine 4V min Today Z98.1 - Arthrodesis status CT lumbar spine wo IV con Today Z98.1 - Arthrodesis status Coding Level of Care Code Est Pt Level 3 (59198) Diagnoses S/P spinal fusion Z98.1
--- OUTSIDE RECORDS SUMMARY | 2024-07-31 12:34 | XMS_ITS | Clinical Summary ---
Author Organization [facility] Address [address] [place] [address] Care Team Providers Care Manager Highway Name Role Phone Sara Zapata MD Primary Care Provider [phone] Allergies Active Allergy Reactions Criticality Noted Date Comments Adhesive Tape-Silicones Rash Low 06/15/2017 Some medical tapes Medications amoxicillin (AMOXIL) 500 mg capsule TAKE 4 CAPSULES BY MOUTH 1 HOUR PRIOR TO DENTAL APPT Active fluticasone propionate (FLONASE) 50 mcg/actuation nasal spray SPRAY 2 SPRAYS INTO EACH NOSTRIL TWICE A DAY 09/10/2022 Active lisinopriL (PRINIVIL,ZESTR IL) 5 mg tablet Acti ve loratadine (CLARITIN) 10 mg tablet SMARTSI Tablet(s) By Mouth Daily Active metFORMIN (GLUCOPHAGE) 1,000 mg tablet Acti ve Social History Tobacco Use Types Packs/Day Years Used Date Smoking Tobacco: Every Day Cigars Smokeless Tobacco: Never Tobacco Cessation:Ready to Q uit: Not Asked; Counseling Given: Not Answered Sex and Gender Information Value Date Recorded Sex Assigned at Not on file Legal Sex Male 4:11 PM EDT Gender Identity Not on file Sexual Orientation Not on file Last Filed Vital Signs Vital Sign Reading Time Taken Comments Blood Pressure - - Pulse - - Temperature - - Respiratory Rate - - Oxygen Saturation - - Inhaled Oxygen Concentration - - Weight 123.8 kg (273 lb) 12/28/2022 11:10 AM EDT Height 190.5 cm (6' 3 ) 12/28/2022 11:10 AM EDT Body Mass Index 34.12 12/28/2022 11:10 AM EDT Plan of Treatment Health Maintenance Due Date Last Done Comments Hepatitis C Screening 1945 Pneumococcal Vaccine: 50+ Years (1 of 2 - PCV) 1965 CT Lung Cancer Screening (Baseline) 1996 RSV Vaccine (60+ years old and patients) (1 - 1-dose 75+ series) 2021 COVID-19 Vaccine ( - season) 2024 03/13/2022, 09/03/2021, 04/23/2021, Additional history exists Influenza Vaccine (#1) 2024 , 02/12/2021, 02/01/2020, Additional history exists Alcohol/Substance Use Screening 05/31/2024 Depression Screening and Follow-Up 05/31/2024 Health Care Proxy Review 05/31/2024 [place] [facility] Annual Screening 05/31/2024 DTaP,Tdap,and Td Vaccines (2 - Td or Tdap) 10/12/2032 10/12/2022 Zoster Vaccines Completed 05/09/2021, 02/12/2021 Hepatitis B Vaccines Aged Out No long er eligible based on patient's age to complete this topic Insurance MEDICARE [facility] Care Teams Manager Highway Relationship Specialty Start Date End Date Sara Zapata MD [address] [place] [id number] PCP - General Internal Medicine 10/12/22
--- OUTSIDE RECORDS SUMMARY | 2024-07-31 12:34 | XMS_ITS | Clinical Summary ---
Author Organization [facility] Address [address] [place] [id number] Care Team Providers Care Materials Branch Chief Name Role Phone Sara Zapata MD Primary Care Provide r Allergies Active Allergy Reactions Criticality Noted Date Comments Adhesive Tape Rash Low 06/15/2017 Some medical tapes Other Rash Low 06/15/2017 Medications Medication Sig Dispensed Refills Start Date End Date Status lisinopril (PRINIVIL,ZESTRIL) tablet 5 mg Take 1 tablet (5 mg total) by mouth daily. 0 10/26/2018 Active metFORMIN (GLUCOPHAGE) tablet 1000 mg Take 1 tablet (1,000 mg total) by mouth daily. 0 12/20/2018 Active Active Problems Problem Noted Date Diagnosed Date Chronic right-sided low back pain without sciati ca 12/23/2018 Right hip pain 12/23/2018 Social History Tobacco Use Types Packs/Day Years Used Date Smoking Tobacco: Some Days Cigars Smokeless Tobacco: Never Alcohol Use Standard Drinks/Week Comments Yes 0 (1 standard drink = 0.6 oz pur e alcohol) occ Sex and Gender Information Value Date Recorded Sex Assigned at Male 05/19/2023 7:30 AM EST Gender Identity Not on file Sexual Orientation Not on file Job Start Date Occupation Industry Not on file Not on file Not on file Last Filed Vital Signs Vital Sign Reading Time Taken Comments Blood Pressure 135/71 11/03/2022 1:18 PM EDT Pulse 73 11/03/2022 1:18 PM EDT Temperature 36.2 ??C (97.2 ??F) 11/03/2022 1:18 PM ED T Respiratory Rate - - Oxygen Saturation 98% 11/03/2022 1:18 PM EDT Inhaled Oxygen Concentration - - Weight 124.7 kg (275 lb) 11/03/2022 1:18 PM EDT Height 193 cm (6' 4 ) 11/03/2022 1:18 PM EDT Body Mass Index 33.47 11/03/2022 1:18 PM EDT Plan of Treatment Health Maintenance Due Date Last Done Comments Hepatitis C Screening 1945 COVID-19 Vaccine (#1) 1945 Pneumococcal Vaccine (1 of 2 - PCV) 1952 Depression Screening 1958 BMI Counseling 1964 Preventative Health Evaluation 1964 Tobacco Cessation Counseling 1964 DTap / Tdap / Td (1 - Tdap) 1965 Shingrix-Zoster Vaccine (1 of 2) 1996 Fall Risk Assessment 2011 RSV Adult > 60+ Yrs or Pregn ant (1 - 1-dose 75+ series) 2021 Influenza Vaccine (#1) 2024 Hepatitis B Vaccines Aged Out No long er eligible based on patient's age to complete this topic RSV Ped < 20 months Aged Out No longe r eligible based on patient's age to complete this topic Care Teams Materials Branch Chief Relationship Specialty Start Date End Date Sara Zapata MD PCP - General Internal Medicine 01/24/20
--- OUTSIDE RECORDS SUMMARY | 2024-07-31 12:34 | XMS_ITS | Referral Summary ---
Author Organization [facility] Address [address] [place] [address] Care Team Providers Care Senior Customer Service Representative Name Role Phone Sara Zapata MD Primary Care Provider Allergies Active Allergy Reactions Criticality Noted Date [...] 12/28/2022 11:10 AM EDT Plan of Treatment Not on file Insurance MEDICARE [facility] Care Teams Senior Customer Service Representative Relationship Specialty Start Date End Date Sara Zapata MD [address] [place] [phone] PCP - General Internal Medicine 10/12/22
--- OUTSIDE RECORDS SUMMARY | 2024-07-31 12:34 | XMS_ITS | Clinical Summary ---
Author Organization [facility] Address [address] [place] [address] Care Team Providers Care Bag Loader Machine Operator Name Role Phone Hannah Munoz MD Primary Care Provider [phone] Surgical History Surgery Date Site/Laterality Comments BACK SURGERY PROCEDURE:BACK SURGERY JOINT REPLACEMENT Bilateral PROCEDURE:JOINT REPLACEMENT;COMMENT:knees HERNIA REPAIR PROCEDURE:HERNIA REPAIR SHOULDER ARTHROSCOPY Left PROCEDURE:SHOULDER ARTHROSCOPY Medical History Medical History Date Comments Cancer (CMS/HCC) DX:Cancer (HCC) ;COMMENT:skin Diabetes mellitus (CMS/HCC) DX:D iabetes mellitus (HCC) Hypertension DX:Hypertension Social History Tobacco Use Types Packs/Day Years Used Date Smoking Tobacco: Some Days Smokeless Tobacco: Never Alcohol Use Standard Drinks/Week Comments Yes 0 (1 standard drink = 0.6 oz pur e alcohol) Sex and Gender Information Value Date Recorded Sex Assigned at Not on file Legal Sex Male 6:24 AM EST Gender Identity Not on file Sexual Orientation Not on file Obstetrics History Last Filed Vital Signs Vital Sign Reading Time Taken Comments Blood Pressure 135/71 11/03/2022 1:18 PM EDT Pulse 73 11/03/2022 1:18 PM EDT Temperature - - Respiratory Rate - - Oxygen Saturation - - Inhaled Oxygen Concentration - - Weight 125 kg (275 lb) 11/03/2022 1:18 PM EDT Height 193 cm (6' 4 ) 11/03/2022 1:18 PM EDT Body Mass Index 33.47 11/03/2022 1:18 PM EDT Plan of Treatment Health Maintenance Due Date Last Done Comments DTaP,Tdap,and Td Vaccines (1 - Tdap) 1965 Pneumococcal Vaccine: 50+ Ye ars (1 of 2 - PCV) 1965 Zoster Vaccines (1 of 2) 1996 RSV Immunization Patients 60 + Years Old (1 - 1-dose 75+ series) 2021 Cholesterol Screening (Lipid Panel) 05/03/2022 Depression Screening 05/03/2022 Falls Risk Assessment 05/03/2022 Hepatitis C Screening 05/03/2022 Social Influencers of Health Screening 05/03/2022 COVID-19 Vaccine (2023-2 5 season) 2024 Influenza Vaccine (#1) 2024 HIB Vaccines Aged Out No longer eligi ble based on patient's age to complete this topic HPV Vaccines Aged Out No longer eligi ble based on patient's age to complete this topic Hepatitis A Vaccines Aged Out No long er eligible based on patient's age to complete this topic Hepatitis B Vaccines Aged Out No long er eligible based on patient's age to complete this topic IPV Vaccines Aged Out No longer eligi ble based on patient's age to complete this topic MMR Vaccines Aged Out No longer eligi ble based on patient's age to complete this topic Meningococcal ACWY Vaccine Aged Out N o longer eligible based on patient's age to complete this topic Meningococcal B Vacine Aged Out No lo nger eligible based on patient's age to complete this topic RSV Immunization Patients Un darrion 20 months Aged Out No longer eligible b ased on patient's age to complete this topic Varicella Vaccines Aged Out No longer eligible based on patient's age to complete this topic Care Teams Bag Loader Machine Operator Relationship Specialty Start Date End Date Hannah Munoz MD [address] [place] [phone] PCP - General 07/19/20
== END 2024-07-31 11:44 | disposition home or self-care (01) ==
PROVIDERS: PCP Internal Medicine; Visit Provider Physician Assistant
DX: Z98.1 Arthrodesis status (principal)
CPT/HCPCS: 99213

== ENCOUNTER → 2024-07-31 11:42 | Outpatient (BNV) | payer MEDICARE, SELFPAY | PROVIDERS: PCP Internal Medicine; Visit Provider Radiology Diagnostic Radiology | DX: Z98.1 Arthrodesis status (principal) | CPT/HCPCS: 72110 ==

== ENCOUNTER 2024-09-15 13:44 | Outpatient (REF) | payer MEDICARE, SELFPAY ==
--- NOTE | ~2024-09-15 | CT_ITS ---
EXAMINATION: CT LUMBAR SPINE WITHOUT CONTRAST CLINICAL INFORMATION: Arthrodesis status; left-sided back pain, patient feels lump, under the skin? Hardware issued. COMPARISON: No prior CT. Lumbar radiographs 07/31/2024. TECHNIQUE: Spiral CT imaging of the lumbar spine performed in axial plane without contrast. Multiplanar reformatted images were constructed from the axial data set. This CT examination was performed using dose optimization techniques as appropriate, variously including the following: *Automated exposure control *Adjustment of mA and/or kV according to patient size (this includes techniques or standardized protocols for targeted exams where dose is matched to indication/reason for exam; i.e. extremities or head) *Use of iterative reconstruction technique FINDINGS: Transitional lumbosacral anatomy with a partially sacralized L5. For the purposes of this report, the L5-S1 disc space is located on axial image 369 of series 5. If further intervention is considered, confirmation of level is recommended. There is a mild to moderate levoconvex scoliosis, apex at L3. There is a normal lumbar lordosis. There has been prior fusion of L2-L5 with transpedicular screws, and posterior connecting rods. There is been associated discectomy with placement disc prostheses. Hardware all appears intact. There is mild lucency surrounding the left L2 screw, suggesting possible loosening. Otherwise, all the hardware appears well seated without definite additional periprosthetic lucency. No fractures, compression deformities, or suspicious bone lesions. Sclerotic type endplate changes present at L2-3 and to a lesser degree L3-4 and L4-5. No definite bony fusion through the disc spaces at the operative levels allowing for streak artifact generated by the prostheses. At the nonoperative levels there is mild to moderate disc degeneration at T12-L1 and L1-L2, and moderate disc degeneration at L5-S1. There is a trace retrolisthesis of L4 on L5. Sagittal alignment is otherwise anatomic. There is normal facet alignment. There is multilevel hypertrophic degenerative facet change. Axial Disc Space Images: T10-T11: Moderate to severe central canal stenosis present secondary to disc osteophytic ridge complex, facet hypertrophy, and posterior ligamentous thickening and calcification. There is probable cord impingement. There is severe left and moderate right neural foraminal narrowing. T11-T12: Mild central canal narrowing. Mild bilateral neural foraminal stenosis. T12-L1: There is no central canal narrowing. Mild bilateral neural foraminal narrowing from a atrophic facet changes. L1-L2: Shallow disc osteophytic bulge. Moderate hypertrophic degenerative facet changes bilaterally. Findings result in mild to moderate central canal stenosis, mild to moderate bilateral subarticular recess stenosis, and moderate left and mild right neural foraminal stenosis. L2-L3: Limited evaluation due to hardware streak artifact obscuration. There is at least moderate and likely moderate to severe central canal stenosis. There is likely moderate to severe subarticular recess stenosis right greater than there is moderate to severe bilateral neural foraminal stenosis. L3-L4: Limited evaluation due to hardware streak artifact. There has been a right hemilaminotomy. There is mild central canal stenosis. There is severe left lateral recess stenosis, and there is severe bilateral left greater than right neural foraminal stenosis. L4-L5: Limited evaluation due to hardware shaped artifact. No residual central canal stenosis. Mild bilateral subarticular recess stenosis. Severe bilateral neural foraminal impingement. L5-S1: No significant central canal or lateral recess stenosis. Moderate bilateral neural foraminal stenosis. PARAVERTEBRAL AND INCLUDED EXTRASPINAL SOFT TISSUES: Imaged paravertebral and paraspinous soft tissues are unremarkable aside from expected postsurgical change. No aortic aneurysm. Moderate aortic calcification. Small type I hiatus hernia at the GE junction. CT/CT lumbar spine wo IV con IMPRESSION: 1. Transitional lumbosacral anatomy. Partially sacralized L5. 2. Surgical fusion of L2-L5. Intact hardware. There appears to be periscrew lucency surrounding the left L3 screw, suggesting possible loosening. Remainder of the hardware appears well seated. 3. No acute bony abnormalities or fractures. 4. There is mild to moderate levoconvex scoliosis. There is multilevel lumbar spondylosis as detailed. 5. No definite hardware abnormality to account for a subcutaneous palpable lump in the lower back. 6. There is moderate to severe central canal stenosis at T10-T11 with probable cord impingement at this level. There is severe left neural foraminal narrowing. 7. There is at least moderate and likely moderate to severe central canal stenosis at L2-3. 8. There is severe left lateral recess stenosis severe left greater than right neural foraminal stenosis at L3-4. 9. Severe bilateral neural foraminal impingement at L4-5. Electronically signed by: Francisco Samll MD 09/15/2024 03:11 PM EDT
--- OUTSIDE RECORDS SUMMARY | 2024-09-15 14:05 | XMS_ITS | Referral Summary ---
Author Organization [facility] Address [address] [place] [address] Care Team Providers Care Paperhanger Contractor Name Role Phone Sara Zapata MD Primary [...] of Treatment Not on file Insurance MEDICARE [facility] Care Teams Paperhanger Contractor Relationship Specialty Start Date End Date Sara Zapata MD [address] [place] [phone] PCP - General Internal Medicine 10/12/22
--- OUTSIDE RECORDS SUMMARY | 2024-09-15 14:05 | XMS_ITS | Clinical Summary ---
Author Organization [facility] Address [address] [place] [address] Care Team Providers Care Grades 6 Through 8 Teacher Name Role Phone Hannah Munoz MD Primary Care Provider [phone] Surgical History Surgery Date Site/Laterality Comments BACK SURGERY PROCEDURE:BACK SURGERY JOINT REPLACEMENT Bilateral PROCEDURE:JOINT REPLACEMENT;COMMENT:knees HERNIA REPAIR PROCEDURE:HERNIA REPAIR SHOULDER ARTHROSCOPY Left PROCEDURE:SHOULDER ARTHROSCOPY Medical History Medical History Date Comments Cancer ([facility] V24, [facility] V28) DX:Cancer (HCC);COMMENT:skin Diabetes mellitus ([facility] V24, [facility] V28) DX:Diabetes mellitus (HCC) Hypertension DX:Hypertension Social History Tobacco [...] Vaccines (1 of 2) 1996 RSV Immunization Adult Patie nts (1 - 1-dose 75+ series) 2021 Cholesterol Screening (Lipid Panel) 05/03/2022 Depression Screening 05/03/2022 Falls Risk Assessment 05/03/2022 Hepatitis C Screening 05/03/2022 Social Influencers of Health Screening 05/03/2022 COVID-19 Vaccine ( - 2023-2 5 season) 2024 Influenza Vaccine (Season Ended) 2025 HIB Vaccines Aged Out No longer eligi [...] age to complete this topic Meningococcal B Vaccine Aged Out No l onger eligible based on patient's age to complete this topic RSV Immunization Patients Un darrion 20 months Aged Out No longer eligible b ased on patient's age to complete this topic Varicella Vaccines Aged Out No longer eligible based on patient's age to complete this topic Care Teams Grades 6 Through 8 Teacher Relationship Specialty Start Date End Date Hannah Munoz MD [address] [place] [phone] PCP - General 07/19/20
--- OUTSIDE RECORDS SUMMARY | 2024-09-15 14:05 | XMS_ITS | Clinical Summary ---
Author Organization [facility] Address [address] [place] [phone] Care Team Providers Care Cloud Physicist Name Role Phone Sara Zapata MD Primary [...] age to complete this topic Care Teams Cloud Physicist Relationship Specialty Start Date End Date Sara Zapata MD PCP - General Internal Medicine 01/24/20
--- OUTSIDE RECORDS SUMMARY | 2024-09-15 14:05 | XMS_ITS | Clinical Summary ---
Author Organization [facility] Address [address] [place] [address] Care Team Providers Care Roof Tile Layer Name Role Phone Sara Zapata MD Primary [...] Last Done Comments Hepatitis C Screening 1945 Medicare AWV 1946 Pneumococcal Vaccine: 50+ Years (1 of 2 - PCV) 1965 CT Lung Cancer Screening (Baseline) 1996 RSV Vaccine (60+ years old and patients) (1 - 1-dose 75+ series) 2021 COVID-19 Vaccine ( - season) 2024 03/13/2022, 09/03/2021, 04/23/2021, Additional history exists Alcohol/Substance Use Screening 05/31/2024 Depression Screening and Follow-Up 05/31/2024 Health Care Proxy Review 05/31/2024 Social Drivers of Health Annual Screening 05/31/2024 Influenza Vaccine (Season Ended) 2025 03/13/2022, 02/12/2021, 02/01/2020, Additional history exists DTaP,Tdap,and Td Vaccines (2 - Td or Tdap) 10/12/2032 10/12/2022 Zoster Vaccines Completed 05/09/2021, 02/12/2021 Hepatitis B Vaccines Aged Out No long er eligible based on patient's age to complete this topic Insurance MEDICARE [facility] Care Teams Roof Tile Layer Relationship Specialty Start Date End Date Sara Zapata MD [address] [place] [phone] PCP - General Internal Medicine 10/12/22
== END 2024-09-15 13:45 | disposition home or self-care (01) ==
LOC: HO.CT 13:44
PROVIDERS: PCP Internal Medicine; Visit Provider Physician Assistant
DX: Z98.1 Arthrodesis status (principal)
CPT/HCPCS: 72131

== ENCOUNTER → 2024-09-15 13:45 | Outpatient (BNV) | payer MEDICARE, SELFPAY | PROVIDERS: PCP Internal Medicine; Visit Provider Radiology Diagnostic Radiology | DX: M47.816 Spondylosis without myelopathy or radiculopathy, lumbar region (principal); Z98.1 Arthrodesis status; R22.2 Localized swelling, mass and lump, trunk | CPT/HCPCS: 72131 ==

== ENCOUNTER 2024-09-28 15:08 | Outpatient (AMB) | payer MEDICARE, SELFPAY ==
--- NOTE | 2024-09-28 15:13 | A.SPINEOV_ITS ---
Intake Visit Reasons: CT follow up Intake Note: Mr. Bonilla is here today to F/u on the results to his CT. Classification Clerk Required: No Allergies latex Allergy (Intermediate, Verified 09/28/24 15:14) Itching-certain tapes athletic therapy tape Allergy (Severe, Uncoded 02/29/24 06:20) Itching Assessment & Plan Assessment & Plan (1) S/P spinal fusion: Code(s): Z98.1 - Arthrodesis status Category: Surgical Plan Mr Bonilla is here in follow-up. His CT scan done at [place] was reviewed with Dr. Ruiz today. Although the locking cap on the right side at L2 is off, nothing in the area that we can see is wrong with the hardware on the left side that he is complaining of the pain and swelling. There does appear to be a small collection underneath the skin maybe a cm too deep. We had a lengthy discussion with the patient about the fact that we do not know exactly what this is, but we suspect that is probably some form of benign fluid collection as his pain is not that bad and he has had no fevers, drainage etc.. It has been there since the surgery, not necessarily getting any bigger. We attempted to drain this today in the office but we could not get any fluid come out. We suspect that is an encapsulated collection, or scar tissue. We offered him the option o f going into the operating room and opening it up if the pain gets worse or it starts to become more enlarged. He will let us know if something changes. Total amount of time spent in this visit was 20 minutes in discussion of symptoms, lumbar CT imaging results and subsequent plan of care Bc Ruiz MD,PhD [facility] Coding Level of Care Code Est Pt Level 3 (46704) Diagnoses S/P spinal fusion Z98.1
--- OUTSIDE RECORDS SUMMARY | 2024-09-28 17:01 | XMS_ITS | Referral Summary ---
Author Organization [facility] Address [address] [place] [address] Care Team Providers Care Fuel Handler Name Role Phone Sara Zapata MD Primary [...] Treatment Not on file Insurance MEDICARE [facility] Care Teams Fuel Handler Relationship Specialty Start Date End Date Sara Zapata MD [address] [place] [phone] PCP - General Internal Medicine 10/12/22
--- OUTSIDE RECORDS SUMMARY | 2024-09-28 17:01 | XMS_ITS | Clinical Summary ---
Author Organization [facility] Address [address] [place] [address] Care Team Providers Care Mold Builder Name Role Phone Sara Zapata MD Primary Care Provider [phone] Allergies Active Allergy Reactions Criticality Noted Date [...] age to complete this topic Insurance MEDICARE [facility] Care Teams Mold Builder Relationship Specialty Start Date End Date Sara Zapata MD [address] [place] [phone] PCP - General Internal Medicine 10/12/22
--- OUTSIDE RECORDS SUMMARY | 2024-09-28 17:01 | XMS_ITS ---
Author Name [facility] Organization Unknown Encounters Encounter Type Encounter Reason Primary Diagnosis Location Date Ambulatory [facility] 03/10/2024 Care Team Organization Name Specialty Phone Email Start Date End Da te [facility] 2024
--- OUTSIDE RECORDS SUMMARY | 2024-09-28 17:01 | XMS_ITS | Clinical Summary ---
Author Organization [facility] Address [address] [place] [address] Care Team Providers Care Preflight Mechanic Name Role Phone Hannah Munoz MD Primary Care Provider [phone] Surgical History Surgery Date Site/Laterality Comments BACK SURGERY PROCEDURE:BACK SURGERY JOINT REPLACEMENT Bilateral PROCEDURE:JOINT REPLACEMENT;COMMENT:knees HERNIA REPAIR PROCEDURE:HERNIA REPAIR SHOULDER ARTHROSCOPY Left PROCEDURE:SHOULDER ARTHROSCOPY Medical History Medical History Date Comments Cancer ([facility] V24, [facility] V28) DX:Cancer (HCC);COMMENT:skin Diabetes mellitus ([facility] V24, [facility] V28) DX:Diabetes mellitus (HCC) Hypertension DX:Hypertension Social [...] age to complete this topic Care Teams Preflight Mechanic Relationship Specialty Start Date End Date Hannah Munoz MD [address] [place] [phone] PCP - General 07/19/20
--- OUTSIDE RECORDS SUMMARY | 2024-09-28 17:01 | XMS_ITS | Clinical Summary ---
Author Organization [facility] Address [address] [place] [phone] Care Team Providers Care Authorization Representative Name Role Phone Sara Zapata MD [...] age to complete this topic Care Teams Authorization Representative Relationship Specialty Start Date End Date Sara Zapata MD PCP - General Internal Medicine 01/24/20
== END 2024-09-28 16:35 | disposition home or self-care (01) ==
LOC: HO.HNS 15:08
PROVIDERS: PCP Internal Medicine; Visit Provider Physician Assistant
DX: Z98.1 Arthrodesis status (principal)
CPT/HCPCS: 99213

== ENCOUNTER → 2024-09-28 15:08 | Outpatient (BNVA) | payer MEDICARE, SELFPAY | PROVIDERS: PCP Internal Medicine; Visit Provider Physician Assistant | DX: Z98.1 Arthrodesis status (principal) | CPT/HCPCS: 99212 ==